=== PATIENT | male | born 1965 | race Hispanic/Latino ===

== ENCOUNTER 2019-09-13 23:14 | Emergency (ER) | payer SELFPAY ==
[2019-09-13] MEDS ORDERED: AMITRIPTYLIN25 MG PO (23:43)
[2019-09-13] MEDS ORDERED: BL ASPIRIN325 MG PO (23:44)
[2019-09-13] MEDS ORDERED: TENORMIN PO (23:45)
[2019-09-13] MEDS ORDERED: FUROSEMIDE20 MG PO (23:46)
[2019-09-13] MEDS ORDERED: ATORVASTATIN CA80 MG PO (23:46)
[2019-09-13] MEDS ORDERED: NOVOLIN N100 UNIT/3 SC (23:48)
[2019-09-13] MEDS ORDERED: NOVOLIN R100 UNIT/1 SC (23:48)
[2019-09-13] MEDS ORDERED: LEVOTHYROXIN150 MC1 PO (23:49)
[2019-09-13] MEDS ORDERED: LOSARTAN POTASS50 MG PO (23:50)
[2019-09-13] MEDS ORDERED: METFORMIN HCL500 M1 PO (23:51)
[2019-09-13] MEDS ORDERED: PRILOSEC20 MG/CAP PO (23:52)
[2019-09-13] MEDS ORDERED: OXCARBAZEPINE600 MG PO (23:53)
[2019-09-13] MEDS ORDERED: ELIMITE52 TOP (23:56)
[2019-09-14 00:25] VITALS: BP 140/65
== END 2019-09-14 00:25 | disposition home or self-care (01) | DRG 607 ==
LOC: ED 23:14
DX: B86 Scabies (principal); I10 Essential (primary) hypertension; E11.319 Type 2 diabetes mellitus with unspecified diabetic retinopathy without macular edema; E66.01 Morbid (severe) obesity due to excess calories; Z79.4 Long term (current) use of insulin

== ENCOUNTER 2019-09-19 | Emergency (ER) | payer SELFPAY ==
[~2019-09-19] MED LIST: AMITRIPTYLIN25 MG PO; ATORVASTATIN CA80 MG PO; BL ASPIRIN325 MG PO; ELIMITE52 TOP; FUROSEMIDE20 MG PO; LEVOTHYROXIN150 MC1 PO; LOSARTAN POTASS50 MG PO; METFORMIN HCL500 M1 PO; NOVOLIN N100 UNIT/3 SC; NOVOLIN R100 UNIT/1 SC; OXCARBAZEPINE600 MG PO; PRILOSEC20 MG/CAP PO; TENORMIN PO
[2019-09-19 13:39] LABS: HEMATOCRIT 37.1 % (39.0-50.0); HEMOGLOBIN 11.6 g/dl (14.0-18.0); IMMATURE GRANULOCYTES 0.5 % (0.0-5.0); MEAN CELL VOLUME 79.3 fL CALC (80.0-100.0); MEAN CORPUSCULAR HGB 24.8 pG CALC (26.0-32.0); MEAN CORPUSCULAR HGB CONC 31.3 g/dL CAL (32.0-36.0); NEUT# 8.92 thou/uL (1.82-7.42); RED BLOOD COUNT 4.68 mill/uL (4.70-6.10); RED CELL DISTRI WIDTH 16.9 % (11.5-15.5)
[2019-09-19 13:45] LABS: ALBUMIN 3.9 g/dL (3.2-5.0); ALKALINE PHOSPHATASE 154 u/l (38-126); ANION GAP 16 (6-22 (CALC)); BILIRUBIN, TOTAL 0.5 mg/dL (0.0-1.4); BUN 21 mg/dL (9-20); BUN/CREATININE RATIO 24 (12-20 (CALC)); CARBON DIOXIDE 19 mmol/l (22-30); CHLORIDE 103 mmol/l (95-108); CREATININE 0.9 mg/dL (0.7-1.3); GFR > 60 ML/MIN (>=60 (CALC)); GFR FOR AFR.AMER. > 60 ML/MIN (>=60 (CALC)); LIPASE 119 u/l (23-300); POTASSIUM 4.8 mmol/l (3.5-5.1); SGOT/AST 44 u/l (17-59); SODIUM 133 mmol/l (137-146); TOTAL PROTEIN 7.8 g/dL (6.3-8.2)
[2019-09-19] MEDS ORDERED: MIRALAX3350 N1 PO (14:10)
[2019-09-19] MEDS ORDERED: ANUCORT-HC25 MG RE (14:10)
[2019-09-19] MEDS ORDERED: COLACE100 MG PO (14:10)
== END 2019-09-19 14:26 | disposition home or self-care (01) | DRG 392 ==
DX: K59.00 Constipation, unspecified (principal); R07.9 Chest pain, unspecified; K64.9 Unspecified hemorrhoids; I10 Essential (primary) hypertension; E11.319 Type 2 diabetes mellitus with unspecified diabetic retinopathy without macular edema; E66.01 Morbid (severe) obesity due to excess calories; Z79.4 Long term (current) use of insulin

== ENCOUNTER 2019-09-30 11:39 | Emergency (ER) | payer SELFPAY ==
[~2019-09-30 11:39] MED LIST changes: +ANUCORT-HC25 MG RE; +COLACE100 MG PO; +MIRALAX3350 N1 PO
[2019-09-30 14:24] LABS: HEMATOCRIT 38.8 % (39.0-50.0); IMMATURE GRANULOCYTES 0.4 % (0.0-5.0); MEAN CELL VOLUME 80.7 fL CALC (80.0-100.0); MEAN CORPUSCULAR HGB 24.9 pG CALC (26.0-32.0); MEAN CORPUSCULAR HGB CONC 30.9 g/dL CAL (32.0-36.0); NEUT# 8.64 thou/uL (1.82-7.42); RED BLOOD COUNT 4.81 mill/uL (4.70-6.10); RED CELL DISTRI WIDTH 17.8 % (11.5-15.5)
[2019-09-30 14:29] LABS: URINE BILIRUBIN - DIPSTICK NEGATIVE (NEGATIVE); URINE BLOOD DIPSTICK NEGATIVE (NEGATIVE); URINE CLARITY CLEAR; URINE COLOR YELLOW; URINE GLUCOSE - DIPSTICK 100 mg/dL (NEGATIVE); URINE KETONE NEGATIVE (NEGATIVE); URINE LEUK ESTERASE NEGATIVE (Negative); URINE NITRITE - DIPSTICK NEGATIVE (Negative); URINE PH 5.5 (4.5-8.0); URINE PROTEIN - DIPSTICK NEGATIVE (NEG-TRACE); URINE SPECIFIC GRAVITY >=1.030
[2019-09-30 15:02] LABS: ALKALINE PHOSPHATASE 133 u/l (38-126); ANION GAP 9 (6-22 (CALC)); BILIRUBIN, TOTAL 0.4 mg/dL (0.0-1.4); BUN 18 mg/dL (9-20); BUN/CREATININE RATIO 20 (12-20 (CALC)); CHLORIDE 104 mmol/l (95-108); CREATININE 0.9 mg/dL (0.7-1.3); GFR > 60 ML/MIN (>=60 (CALC)); GFR FOR AFR.AMER. > 60 ML/MIN (>=60 (CALC)); LIPASE 188 u/l (23-300); SGOT/AST 38 u/l (17-59); SODIUM 137 mmol/l (137-146); TOTAL PROTEIN 7.9 g/dL (6.3-8.2)
[2019-09-30 15:04] LABS: CARBON DIOXIDE 28 mmol/l (22-30)
[2019-09-30 19:04] VITALS: BP 138/66
== END 2019-09-30 18:00 | DRG 53 ==
LOC: ED 11:39
DX: S14.106A Unspecified injury at C6 level of cervical spinal cord, initial encounter (principal); R06.02 Shortness of breath; I10 Essential (primary) hypertension; E11.319 Type 2 diabetes mellitus with unspecified diabetic retinopathy without macular edema; E66.01 Morbid (severe) obesity due to excess calories; W18.39XA Other fall on same level, initial encounter; Y92.009 Unspecified place in unspecified non-institutional (private) residence as the place of occurrence of the external cause; Z79.4 Long term (current) use of insulin
CPT/HCPCS: L0120